=== PATIENT | male | born 1970 | race Caucasian/White ===

== ENCOUNTER 2024-06-19 10:30 | Day surgery (SDC) | payer BC, SELFPAY ==
[2024-06-19 11:20] VITALS: BP 184/105
[2024-06-19 11:56] VITALS: BP 154/105
--- NOTE | 2024-06-19 12:30 | ITS.CL.IMPLP ---
[employer] - Implant Loop
Implant Loop
Procedure Report:
ILR explant
Date of Procedure: June 19, 2024
Patient : [id number]
Procedure: Insertable Loop Recorder explant
Indication: Generator at battery depletion
�
Implant: Linq: [employer]; Model# [id number]
�
Technique: The patient was prepped and draped in the usual fashion.��Conscious sedation was administered and local anesthetic was applied to the left��prepectoral subcutaneous tissue. A stab incision was made and the chronic pocket was entered with
blunt dissection. Hemostasis was excellent. The incision was closed in two layers with absorbable suture. The skin was closed with steri-strips. The estimated blood��loss was minimal. There were no complications.
�
�
Conclusion: Uncomplicated insertable loop explant
�
Recommendation: Routine wound care
�
cc: Yovani Lamar
[2024-06-19 13:07] VITALS: BP 115/76
[2024-06-19 13:22] VITALS: BP 113/77
[2024-06-19 13:37] VITALS: BP 121/77
[2024-06-19 13:52] VITALS: BP 145/87
== END 2024-06-19 14:05 | disposition home or self-care (01) ==
LOC: CATH 10:30
PROVIDERS: ATTENDING PHYSICIAN Internal Medicine Cardiovascular Disease; FAMILY PHYSICIAN Nurse Practitioner Family
DX: Z09 Encounter for follow-up examination after completed treatment for conditions other than malignant neoplasm (principal); Z86.73 Personal history of transient ischemic attack (TIA), and cerebral infarction without residual deficits
CPT/HCPCS: 33286; 33285; C1764